=== PATIENT | male | born 1990 | race Caucasian/White ===

== ENCOUNTER 2016-09-19 10:14 | Emergency (ER) | payer OTHER ==
[~2016-09-19] VITALS: Ht 182.9 cm; Wt 69.0 kg
[2016-09-19 10:18] VITALS: BP 131/79; PULSE 93; RESP 16; TEMP 98; O2SAT 98
--- NOTE | 2016-09-19 10:42 | PD ---
HPI Chief Complaint: Cold / Flu Symptoms Time Seen by Provider: 10:33 Travel History International Travel<30 days: No Contact w/Intl Traveler<30days: No Traveled to known affect area: No History of Present Illness HPI This patient complains of runny nose and congestion and cough and body aches. Severity symptoms is mild to moderate. No fever. PFSH Past Medical History ADHD: Yes Cancer: No Cardiovascular Problems: No Cerebrovascular Accident: No Diabetes: Yes (paternal grandma,iddm.) Patient Takes Glucophage: No Diminished Hearing: No Endocrine: No Genitourinary: No Immune Disorder: No Musculoskeletal: No Neurologic: No Psychiatric: Yes Respiratory: No Immunizations Current: Yes Migraines: No Seizures: No Thyroid Disease: No Ulcer: No Past Surgical History Appendectomy: No Cholecystectomy: No Social History Alcohol Use: Yes (OCC) Tobacco Use: No (DENIES) Substance Use: Yes (marijuana, opiatesL; DENIES THIS VISIT 08/20/15) Allergies-Medications (Allergen,Severity, Reaction): Coded Allergies: No Known Allergies (Verified , 09/19/16) Reported Meds & Prescriptions Reported Meds & Active Scripts Active No Active Prescriptions or Reported Medications Review of Systems HENT: No: Headaches Respiratory: Positive: Cough Gastrointestinal: No: Vomiting Physical Exam Narrative RESPIRATORY: Respiratory effort unlabored, no retractions or use of accessory muscles. Breath sounds are clear and symmetric. GASTROINTESTINAL: Abdomen soft, non-tender, nondistended. Positive bowel sounds. No hepato-splenomegaly, or palpable masses. No guarding. Throat clear TMs normal Data Data Last Documented VS Vital Signs Date Time Temp Pulse Resp B/P Pulse Ox O2 Delivery O2 Flow Rate FiO2 09/19/16 10:18 98.0 93 16 131/79 98 MDM Medical Decision Making Medical Screen Exam Complete: Yes Emergency Medical Condition: Yes Medical Record Reviewed: Yes Differential Diagnosis Flu syndrome, URI, bronchitis Narrative Course I have reviewed the patient's electronic medical record. Presentation consistent with an acute viral syndrome Supportive care discussed Gradual resolution is expected Diagnosis Primary Impression: Acute viral syndrome Additional Instructions: The patient was advised to follow up with their physician and return if they worsen. Med/Other Pt SpecificInfo: Other Scripts No Active Prescriptions or Reported Meds Disposition: 01 DISCHARGE HOME Condition: Stable Ambrocio Ma MD Sep 19, 2016 10:42
== END 2016-09-19 11:01 | disposition home or self-care (01) ==
LOC: PHEFT 10:14
DX: B34.9 Viral infection, unspecified (principal); E11.9 Type 2 diabetes mellitus without complications
CPT/HCPCS: 99283

== ENCOUNTER 2016-11-30 16:48 | Emergency (ER) | payer OTHER ==
[~2016-11-30] VITALS: Ht 182.9 cm; Wt 69.3 kg
[2016-11-30 17:26] VITALS: BP 102/67; PULSE 71; RESP 18; TEMP 98.2; O2SAT 100
[2016-11-30] MEDS ORDERED: CLIN1CAP5 PO (17:39)
[2016-11-30] MEDS ORDERED: AUGM875T PO (17:39)
--- NOTE | 2016-11-30 17:42 | PD ---
HPI Chief Complaint: Bite or Sting Time Seen by Provider: 17:49 Travel History International Travel<30 days: No Contact w/Intl Traveler<30days: No Traveled to known affect area: No History of Present Illness HPI 26-year-old male presents to the emergency department status post dog bite 3 days ago at work. Patient states she was seen at [facility] on that day and started on Augmentin 875 twice a day. Patient went back today and was started on clindamycin 300 mg 4 times a day which she started 1. Patient is here with increased swelling to the dorsal left hand which she is concerned about is he has had abscess from similar circumstances in August 2016. There is no drainage, significant erythema, warmth, streaking, fever, chills, or other signs of sepsis. No numbness or tingling of the left hand or fingers. He does have somewhat limited range of motion secondary to swelling. He has no known drug allergies. This is a workplace injury. PFSH Past Medical History ADHD: Yes Cancer: No Cardiovascular Problems: No Cerebrovascular Accident: No Diabetes: Yes (paternal grandma,iddm.) Patient Takes Glucophage: No Diminished Hearing: No Endocrine: No Genitourinary: No Immune Disorder: No Musculoskeletal: No Neurologic: No Psychiatric: Yes Respiratory: No Immunizations Current: Yes Migraines: No Seizures: No Thyroid Disease: No Ulcer: No Tetanus Vaccination: < 5 Years Influenza Vaccination: No Past Surgical History Appendectomy: No Cholecystectomy: No Social History Alcohol Use: Yes (OCC) Tobacco Use: No (DENIES) Substance Use: Yes (marijuana, opiatesL; DENIES THIS VISIT 08/20/15) Allergies-Medications (Allergen,Severity, Reaction): Coded Allergies: No Known Allergies (Verified , 11/30/16) Reported Meds & Prescriptions Reported Meds & Active Scripts Active Reported Clindamycin (Clindamycin HCl) 150 Mg Cap 150 Mg PO Q6H Augmentin (Amoxicillin-Clavulanate) 875-125 mg Tab 875 Mg PO BID not for use in CrCl <30 ml/min. Review of Systems Except as stated in HPI: all other systems reviewed are Neg General / Constitutional: No: Fever Eyes: No: Visual changes HENT: No: Headaches Cardiovascular: No: Chest Pain or Discomfort Respiratory: No: Shortness of Breath Gastrointestinal: No: Abdominal Pain Genitourinary: No: Dysuria Musculoskeletal: No: Pain Skin: No Rash Neurologic: No: Weakness Psychiatric: No: Depression Endocrine: No: Polydipsia Hematologic/Lymphatic: No: Easy Bruising Physical Exam Narrative GENERAL: Patient appears normal. Distress. SKIN: Warm and dry. Normal color. Normal turgor. Patient has ecchymosis over the dorsal left hand with multiple healing puncture wounds. He also has puncture wounds to the left medial wrist 1. There is no drainage. There is no significant erythema. There is no lymphangitis or streaking. HEAD: Atraumatic. Normocephalic. EYES: Pupils equal and round. No scleral icterus. No injection or drainage. ENT: No nasal bleeding or discharge. Mucous membranes pink and moist. Pharynx is Patent and unremarkable. NECK: Trachea midline. Supple nontender. CARDIOVASCULAR: Regular rate and rhythm. RESPIRATORY: No accessory muscle use. Clear to auscultation. Breath sounds equal bilaterally. GASTROINTESTINAL: Abdomen soft, non-tender, nondistended. Hepatic and splenic margins not palpable. MUSCULOSKELETAL: Extremities without clubbing, cyanosis, or edema. No obvious deformities. Patient has swelling in the left dorsal hand consistent with his injury. Range of motion is full. No obvious deep abscess is noted at this time. The palm appears normal on the left hand. NEUROLOGICAL: Awake and alert. No obvious cranial nerve deficits. Motor grossly within normal limits. Five out of 5 muscle strength in the arms and legs. Normal speech. PSYCHIATRIC: Appropriate mood and affect; insight and judgment normal. Data Data Last Documented VS Vital Signs Date Time Temp Pulse Resp B/P Pulse Ox O2 Delivery O2 Flow Rate FiO2 11/30/16 17:26 98.2 71 18 102/67 100 Orders Clindamycin Inj (Cleocin Inj) (11/30/16 18:00) Ketorolac Inj (Toradol Inj) (11/30/16 18:00) Splint Or Brace Apply/Monitor (11/30/16 17:48) MDM Medical Decision Making Medical Screen Exam Complete: Yes Emergency Medical Condition: Yes Medical Record Reviewed: Yes Differential Diagnosis Dog bite. Cellulitis. Contusion. Crush injury. Ecchymosis. Narrative Course Patient is medically stable at time of exam. No signs of sepsis or abscess are suspected at this time. Patient is given 600 mg clindamycin IM as well as 60 mg Toradol IM. Patient is placed in a volar hand splint on the left hand. Patient is to continue his Augmentin and clindamycin as previously prescribed. Recommend follow-up tomorrow to ensure improvement, and referral to hand surgeon if symptoms worsen in anyway. Work comp form is completed. Diagnosis Primary Impression: Dog bite Qualified Code: W54.0XXD - Dog bite, subsequent encounter Patient Instructions: Animal Bite (ED), Cellulitis (DC), Crush Injury (ED), General Instructions Additional Instructions: No signs of sepsis or abscess are suspected at this time. Patient is given 600 mg clindamycin IM as well as 60 mg Toradol IM. Patient is placed in a volar hand splint on the left hand. Patient is to continue his Augmentin and clindamycin as previously prescribed. Recommend follow-up tomorrow to ensure improvement, and referral to hand surgeon if symptoms worsen in anyway. Work comp form is completed. Med/Other Pt SpecificInfo: No Change to Meds Disposition: 01 DISCHARGE HOME Condition: Stable Kenny Mcnamara Nov 30, 2016 17:42
[2016-11-30] MEDS ORDERED: CLINDAMYCIN PHOS 600 MG/4 ML VIAL IM ONE (18:00)
[2016-11-30] MEDS ORDERED: KETOROLAC TROMETHAMINE 60 MG/2 ML (IM) VIAL IM ONE (18:00)
== END 2016-11-30 18:40 | disposition home or self-care (01) ==
LOC: PHEFT 16:48
DX: S61.432D Puncture wound without foreign body of left hand, subsequent encounter (principal); W54.0XXD Bitten by dog, subsequent encounter
CPT/HCPCS: 29125; 96372; 99283; J1885

== ENCOUNTER 2016-12-01 12:16 | Emergency (ER) | payer OTHER ==
[~2016-12-01] VITALS: Ht 182.9 cm; Wt 70.0 kg
[~2016-12-01 12:16] MED LIST: AUGM875T PO; CLIN1CAP5 PO
[2016-12-01 12:21] VITALS: BP 107/72; PULSE 70; RESP 18; TEMP 98.3; O2SAT 96
--- NOTE | 2016-12-01 12:35 | PD ---
HPI Chief Complaint: Wound/Suture/Staple Re-Check Time Seen by Provider: 12:30 Travel History International Travel<30 days: No Contact w/Intl Traveler<30days: No Traveled to known affect area: No History of Present Illness HPI Patient is a 26-year-old male presenting to the emergency room for a wound recheck. Patient was seen and evaluated yesterday, he was bitten by a dog at work 3 days prior. He reports that the pain has improved. He has no other complaints at this time. Patient reports being compliant with antibiotics. PFSH Past Medical History ADHD: Yes Cancer: No Cardiovascular Problems: No Cerebrovascular Accident: No Diabetes: Yes (paternal grandma,iddm.) Diminished Hearing: No Endocrine: No Genitourinary: No Immune Disorder: No Musculoskeletal: No Neurologic: No Psychiatric: Yes Respiratory: No Immunizations Current: Yes Migraines: No Seizures: No Thyroid Disease: No Ulcer: No Past Surgical History Appendectomy: No Cholecystectomy: No Social History Alcohol Use: Yes (OCC) Tobacco Use: No (DENIES) Substance Use: Yes (marijuana, opiatesL; DENIES THIS VISIT 08/20/15) Allergies-Medications (Allergen,Severity, Reaction): Coded Allergies: No Known Allergies (Verified , 12/01/16) Reported Meds & Prescriptions Reported Meds & Active Scripts Active Reported Clindamycin (Clindamycin HCl) 150 Mg Cap 150 Mg PO Q6H Augmentin (Amoxicillin-Clavulanate) 875-125 mg Tab 875 Mg PO BID not for use in CrCl <30 ml/min. Review of Systems Except as stated in HPI: all other systems reviewed are Neg Musculoskeletal: Positive: Edema, Pain Skin: Positive Lesions Physical Exam Narrative GENERAL: Well-nourished, well-developed patient. SKIN: Focused skin assessment warm/dry. Multiple scabbed puncture wounds to palmar and dorsal aspect of left hand, edema noted to the dorsal aspect of the left hand, no erythema or warmth or drainage noted. Positive radial pulse, brisk less than 3 second capillary refill. HEAD: Normocephalic. EYES: No scleral icterus. No injection or drainage. NECK: Supple, trachea midline. No JVD or lymphadenopathy. CARDIOVASCULAR: Regular rate and rhythm without murmurs, gallops, or rubs. RESPIRATORY: Breath sounds equal bilaterally. No accessory muscle use. GASTROINTESTINAL: Abdomen soft, non-tender, nondistended. MUSCULOSKELETAL: No cyanosis, or edema. Patient has full range of motion in left hand and fingers, 5/5 clay roaster strength, no pain with passive extension of fingers on left hand. BACK: Nontender without obvious deformity. No CVA tenderness. Data Data Last Documented VS Vital Signs Date Time Temp Pulse Resp B/P Pulse Ox O2 Delivery O2 Flow Rate FiO2 12/01/16 12:21 98.3 70 18 107/72 96 [facility] Medical Decision Making Medical Screen Exam Complete: Yes Emergency Medical Condition: Yes Interpretation(s) Vital Signs Date Time Temp Pulse Resp B/P Pulse Ox O2 Delivery O2 Flow Rate FiO2 12/01/16 12:21 98.3 70 18 107/72 96 Differential Diagnosis Cellulitis versus abscess versus tenosynovitis versus other Narrative Course Patient is a 26-year-old male here for a wound recheck, he was placed in the splint yesterday, there is edema noted to his hand however is likely dependent in nature, there is no obvious sign of infection. Patient is neurovascularly intact. Patient will be given a sling in order to keep arm elevated to help decrease the swelling. Patient will continue the previously prescribed antibiotic therapy. Patient to follow-up as previously advised. He can return to emergency department for any new or worsening symptoms. Patient stable for discharge Diagnosis Primary Impression: Encounter for wound re-check Additional Impressions: Dog bite Qualified Code: W54.0XXD - Dog bite, subsequent encounter Infection of left hand Referrals: Hand Surgeon Primary Care Physician Patient Instructions: General Instructions, How to Use a Sling (GEN) Additional Instructions: Complete previously prescribed antibiotics Follow-up as directed with primary care, hand surgeon Return to emergency department for any new or worsening symptoms Keep hand elevated to help decrease swelling Med/Other Pt SpecificInfo: No Change to Meds Disposition: 01 DISCHARGE HOME Condition: Stable Ramila Montelongo Dec 01, 2016 12:35
== END 2016-12-01 12:51 | disposition home or self-care (01) ==
LOC: PHEFT 12:16
DX: S61.452D Open bite of left hand, subsequent encounter (principal); L08.9 Local infection of the skin and subcutaneous tissue, unspecified; R60.0 Localized edema; Z86.59 Personal history of other mental and behavioral disorders; W54.0XXD Bitten by dog, subsequent encounter; Y99.0 Civilian activity done for income or pay
CPT/HCPCS: 99281